=== PATIENT | male | born 1990 | race Caucasian/White ===

== ENCOUNTER 2017-11-12 10:00 | Emergency (ER) | payer OTHER ==
[~2017-11-12] VITALS: Ht 180.3 cm; Wt 65.9 kg
[2017-11-12 10:25] VITALS: BP 117/74; PULSE 61; RESP 16; TEMP 97.9; O2SAT 96
--- NOTE | 2017-11-12 12:10 | PD ---
HPI Chief Complaint: Psychiatric Symptoms Time Seen by Provider: 11:48 Travel History International Travel<30 days: No Contact w/Intl Traveler<30days: No Traveled to known affect area: No History of Present Illness HPI Patient is a 27-year-old male presenting to the emergency department under Delacruz act for psychiatric evaluation. Patient was transferred from [facility]. Patient reports that he has increased anxiety and depression. He admits to telling his sister that he wanted to kill himself. Patient states that he does not want to live. Patient admitted to taking multiple pills and drinking alcohol in an attempt to end his life. Symptom onset is unknown, symptom severity is moderate to severe. They are unknown exacerbating factors other than increased anxiety. He denies any psychiatric history. He admits to drinking alcohol daily. [facility] Past Medical History Medical History: Denies Significant Hx Social History Alcohol Use: Yes Tobacco Use: Yes Substance Use: Yes Allergies-Medications (Allergen,Severity, Reaction): Coded Allergies: No Known Allergies (Unverified , 11/12/17) Reported Meds & Prescriptions Reported Meds & Active Scripts Active No Active Prescriptions or Reported Medications Review of Systems Except as stated in HPI: all other systems reviewed are Neg Psychiatric: Positive: Anxiety, Depression, Suicidal Ideations, Substance Abuse Physical Exam Narrative GENERAL: Well-developed, well-nourished, well-appearing male. Presenting in no acute distress. SKIN: Warm and dry. HEAD: Atraumatic. Normocephalic. EYES: Pupils equal and round. No scleral icterus. No injection or drainage. ENT: No nasal bleeding or discharge. Mucous membranes pink and moist. NECK: Trachea midline. No JVD. CARDIOVASCULAR: Regular rate and rhythm. RESPIRATORY: No accessory muscle use. Clear to auscultation. Breath sounds equal bilaterally. GASTROINTESTINAL: Abdomen soft, non-tender, nondistended. Hepatic and splenic margins not palpable. MUSCULOSKELETAL: Extremities without clubbing, cyanosis, or edema. No obvious deformities. NEUROLOGICAL: Awake and alert. No obvious cranial nerve deficits. Motor grossly within normal limits. Five out of 5 muscle strength in the arms and legs. Normal speech. PSYCHIATRIC: Depressed mood and affect; insight and judgment normal. Data Data Last Documented VS Vital Signs Date Time Temp Pulse Resp B/P (MAP) Pulse Ox O2 Delivery O2 Flow Rate FiO2 11/12/17 10:25 97.9 61 16 117/74 (88) 96 Orders Orders Complete Blood Count With Diff (11/12/17 12:02) Comprehensive Metabolic Panel (11/12/17 12:02) Thyroid Stimulating Hormone (11/12/17 12:02) Urinalysis - C+S If Indicated (11/12/17 12:02) Psych Screen (11/12/17 12:02) Drug Screen, Random Urine (11/12/17 12:02) Alcohol (Ethanol) (11/12/17 12:02) Salicylates (Aspirin) (11/12/17 12:02) Tylenol (Acetaminophen) (11/12/17 12:02) Ibuprofen (Motrin) (11/12/17 12:15) Diet Regular Basic (11/12/17 Lunch) Alprazolam (Xanax) (11/12/17 12:15) Nicotine 7 Mg Patch.24 Hr (Habitrol 7 M (11/12/17 12:15) MDM Medical Decision Making Medical Screen Exam Complete: Yes Emergency Medical Condition: Yes Medical Record Reviewed: Yes Interpretation(s) Vital Signs Date Time Temp Pulse Resp B/P (MAP) Pulse Ox O2 Delivery O2 Flow Rate FiO2 11/12/17 10:25 97.9 61 16 117/74 (88) 96 Differential Diagnosis Mood disorder versus substance abuse versus suicidal ideations versus depression versus metabolic abnormality versus other Narrative Course Patient is a 27-year-old male that was brought to the emergency department under a Delacruz act for psychiatric evaluation. Patient was seen and evaluated for hospital, medically cleared and then transferred. Medical records reviewed , labs without any acute findings. Urine drug screen was positive for benzos, cocaine, marijuana. Patient's blood alcohol level was 25 at that time. Patient is reporting increased anxiety, Xanax 0.5 mg p.o. 1 dose ordered. Patient was also ordered a nicotine patch. Patient is medically cleared for psychiatric evaluation. Diagnosis Primary Impression: Medical clearance for psychiatric admission Scripts No Active Prescriptions or Reported Meds Condition: Carmen Xavier Nov 12, 2017 12:10
[2017-11-12] MEDS ORDERED: NICOTINE 7 MG/24 HR PATCH T-DERMAL ONE (12:15)
[2017-11-12] MEDS ORDERED: ALPRAZolam 0.5 MG TAB PO ONE (12:15)
[2017-11-12] MEDS ORDERED: IBUPROFEN 800 MG TAB PO ONE (12:15)
[2017-11-12 17:48] VITALS: BP 115/56; PULSE 86; RESP 18; O2SAT 99
[2017-11-12] MEDS ORDERED: REMOVE OLD PATCH T-DERMAL SCH (21:00)
[2017-11-12] MEDS ORDERED: NICOTINE 21 MG/24 HR PATCH T-DERMAL ONE (21:00)
== END 2017-11-13 03:46 ==
LOC: NEDAMB 10:00 → NEPJ 11-13 03:46
DX: Z04.8 Encounter for examination and observation for other specified reasons (principal); F32.9 Major depressive disorder, single episode, unspecified; Z72.0 Tobacco use
CPT/HCPCS: 99285